=== PATIENT | female | born 1970 | race African-American/Black ===

== ENCOUNTER 2018-10-12 17:12 | Emergency (ER) | payer BC, OTHER ==
[~2018-10-12] VITALS: Ht 160 cm; Wt 127.9 kg
[~2018-10-12 17:12] MED LIST: AMARYL4 MG PO; COREG CR40 MG PO; COZAAR 50 MG TA50 M2 PO; IRBESARTAN-HCT1 EAC1 PO; KLOR-CON 1010 MEQ PO; LASIX 40 MG TAB40 M2 PO; LEVEMIR SUBQ; LIPITOR 20 MG T20 M1 PO; NORVASC5 M1 PO; TRESIBA FL100 UNIT/1 SUBQ
[2018-10-12] MEDS ORDERED: IBUPROFEN 600600 M1 PO (17:44)
[2018-10-12] MEDS ORDERED: TIZANIDINE HCL4 MG PO (17:44)
[2018-10-12 17:51] VITALS: BP 171/90
== END 2018-10-12 17:52 | disposition home or self-care (01) ==
LOC: ER 17:12
DX: S40.012A Contusion of left shoulder, initial encounter (principal); E11.9 Type 2 diabetes mellitus without complications; I10 Essential (primary) hypertension; Z79.4 Long term (current) use of insulin; Z91.018 Allergy to other foods; Z90.10 Acquired absence of unspecified breast and nipple; V89.2XXA Person injured in unspecified motor-vehicle accident, traffic, initial encounter; Y92.410 Unspecified street and highway as the place of occurrence of the external cause; Y93.89 Activity, other specified; Y99.8 Other external cause status

== ENCOUNTER → 2018-11-13 | Outpatient (CLI) | payer BC, OTHER ==
[~2018-11-13] MED LIST changes: +IBUPROFEN 600600 M1 PO; +TIZANIDINE HCL4 MG PO
== END ==
LOC: CAT 10:35
DX: S13.4XXD Sprain of ligaments of cervical spine, subsequent encounter (principal); X58.XXXD Exposure to other specified factors, subsequent encounter

== ENCOUNTER → 2019-06-15 | Outpatient (CLI) | payer BC, OTHER | LOC: MRI 14:32 | DX: R42 Dizziness and giddiness (principal); R51 Headache ==

== ENCOUNTER → 2021-09-23 | Outpatient (CLI) | payer BC, OTHER ==
[2021-09-23 11:37] LABS: ABSOLUTE NEUTROPHILS 5.3 thou/uL (1.4-8.2); BASOPHILS 0.8 % (0.0-2.0); EOSINOPHILS 1.8 % (0.0-3.0); HEMATOCRIT 36.4 % (37.0-47.0); HEMOGLOBIN 11.7 gm/dL (12.0-15.0); LYMPHOCYTES 18.9 % (24.0-44.0); MCH 28.2 pg (26.0-34.0); MCHC 32.2 g/dL (28.0-37.0); MCV 87.7 fL (80.0-100.0); MONOCYTES 9.8 % (1.0-8.0); PLATELET COUNT 348 thou/uL (150-400); POLYS 68.7 % (36.0-66.0); RBC 4.14 mil/uL (4.20-5.00); RDW 14.5 % (10.5-14.5); WBC 7.7 thou/uL (4.0-11.0)
[2021-09-23 12:08] LABS: ALBUMIN 2.6 g/dL (3.4-5.0); ANION GAP 9 mmol/L (7-16); BUN 34 mg/dL (7-18); CALCIUM 9.1 mg/dL (8.5-10.1); CHLORIDE 101 mmol/L (98-107); CHOLESTEROL 349 mg/dL (<200); CO2 27 mmol/L (21-32); CREATININE 1.9 mg/dL (0.6-1.0); GLUCOSE 188 mg/dL (74-106); HDL CHOLESTEROL 64 mg/dL (>40); LDL CHOLESTEROL 242 mg/dL (<100); POTASSIUM 4.2 mmol/L (3.5-5.1); SGOT 21 U/L (15-37); SGPT 21 U/L (30-65); SODIUM 137 mmol/L (136-145); TC:HDL 5.5 Ratio (Not establshd); TOTAL BILIRUBIN 0.5 mg/dL (0.2-1.0); TOTAL PROTEIN 6.6 g/dL (6.4-8.2); TRIGLYCERIDE 216 mg/dL (<150); VLDL 43 mg/dL (<40)
[2021-09-24 02:06] LABS: GLYCOHEMOGLOBIN (HGB A1C) 9.4 % (4.8-5.6)
== END ==
LOC: LAB 09:27 → ULTRA 09:27
PROVIDERS: ATTEND Family Medicine
DX: R60.0 Localized edema (principal); E11.9 Type 2 diabetes mellitus without complications; M06.9 Rheumatoid arthritis, unspecified; I10 Essential (primary) hypertension

== ENCOUNTER → 2021-10-26 | Outpatient (CLI) | payer BC, OTHER | END | disposition home or self-care (01) | LOC: SJCVCIMAG 09:46 | PROVIDERS: ATTEND Internal Medicine | DX: I08.8 Other rheumatic multiple valve diseases (principal); I11.0 Hypertensive heart disease with heart failure; I50.9 Heart failure, unspecified; I27.20 Pulmonary hypertension, unspecified ==